=== PATIENT | female | born 1980 | race Caucasian/White ===

== ENCOUNTER 2016-05-22 23:07 | Emergency (ER) | payer SELFPAY ==
[~2016-05-22] VITALS: Ht 162.6 cm; Wt 84.4 kg
[2016-05-22 23:11] VITALS: BP 136/90
--- NOTE | 2016-05-22 23:19 | NUR ---
PT TAKEN TO BED 3
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
--- NOTE | 2016-05-22 23:38 | NUR ---
Dr. Leyva evaluating patient at bedside.
[2016-05-22] MEDS ORDERED: MORPHINE SULFATE 10 MG/ML SYR IM ONE (23:45)
[2016-05-23] MEDS ORDERED: ONDANSETRON 4 MG TAB PO ONE (00:15)
[2016-05-23 00:47] VITALS: BP 136/94
--- NOTE | 2016-05-23 00:47 | NUR ---
Patient discharged BY DR ANGELES with v/s stable. Written and verbal after care instructions given and explained BY ER MD. Patient alert, oriented and verbalized understanding of instructions. Wheel Chair Assisted with by caregiver. All questions addressed prior to discharge. ID band removed. Patient advised to follow up with PMD OR RETURN TO ER IF CONDITION WORSENS. Rx of NAPROSYN Given. Patient educated on indication of medication including possible reaction and side effects. Opportunity to ask questions provided and answered.
== END 2016-05-23 00:47 | disposition home or self-care (01) ==
LOC: MED 23:07
DX: S83.91XA Sprain of unspecified site of right knee, initial encounter (principal); R10.9 Unspecified abdominal pain; R07.89 Other chest pain; Z88.5 Allergy status to narcotic agent; Z88.6 Allergy status to analgesic agent; X50.1XXA Overexertion from prolonged static or awkward postures, initial encounter; Y93.89 Activity, other specified; Y92.89 Other specified places as the place of occurrence of the external cause; Y99.8 Other external cause status; Z88.0 Allergy status to penicillin
CPT/HCPCS: 73562; 96372; 99284; J2270; Q0162

== ENCOUNTER 2017-05-04 21:30 | Emergency (ER) | payer OTHER ==
[~2017-05-04] VITALS: Ht 162.6 cm; Wt 95.3 kg
[2017-05-04 21:41] VITALS: BP 151/95
[2017-05-04] MEDS ORDERED: CIPR250T3 PO (21:45)
[2017-05-04] MEDS ORDERED: ROC2I IJ (21:45)
[2017-05-04] MEDS ORDERED: TOR30I (21:45)
--- NOTE | 2017-05-04 21:53 | NUR ---
36Y F BIB FAMILY C/O RIGHT FLANK PAIN X 2 DAYS; PT STATE SHE WENT TO URGENT CARE THIS MORNING AND WAS GIVEN A TORADOL SHOT TO RELIEF BUT PAIN STILL PRESENT. PT DENIES ANY V/D BUT C/O NAUSEA. PT AAOX4. PT STATES PAIN IS SHARP NON RADIATING. 9/10 PAIN
--- NOTE | 2017-05-04 22:02 | NUR ---
Patient being evaluated by physician at bedside.
[2017-05-04] MEDS ORDERED: KETOROLAC 30 MG/ML VIAL IM ONE (22:05)
[2017-05-04] MEDS ORDERED: ONDANSETRON 4 MG ODT PO ONE (22:10)
--- NOTE | 2017-05-04 22:26 | NUR ---
MOVED TO 10
--- NOTE | 2017-05-04 22:28 | NUR ---
PT LEFT FOR CT VIA WHEELCHAIR, ACCOMPANIED BY ENVIRONMENTAL ECONOMIST
--- NOTE | 2017-05-04 22:57 | NUR ---
PHLEB AT BEDSIDE, DRAWING BLOOD
[2017-05-04 23:14] LABS: APPEARANCE,URINE CLOUDY (CLEAR); BILIRUBIN,URINE NEGATIVE (NEGATIVE); BLOOD, URINE 2+ (NEGATIVE); COLOR,URINE YELLOW (YELLOW); LEUKOCYTE ESTERASE ,URINE 1+ (NEGATIVE); NITRITE, URINE POSITIVE (NEGATIVE); PH,URINE 5.5 (5.0-9.0); UGLUCOSE NEGATIVE (NEGATIVE)
[2017-05-04 23:14] LABS: ANION GAP 14.2 (8-16); CARBON DIOXIDE 26.7 mmol/L (21-32); CREATININE 0.9 mg/dL (0.6-1.3); POTASSIUM 3.9 mmol/L (3.5-5.1)
[2017-05-04 23:20] LABS: ALBUMIN 3.5 g/dL (3.4-5.0); TOTAL BILIRUBIN 0.2 mg/dL (0.0-1.0)
[2017-05-04] MEDS ORDERED: NACL 0.9% 1,000 ML IV ONE (23:20)
[2017-05-04 23:25] LABS: BASOPHILS # (AUTO) 0.5 K/uL (0.00-0.22); BASOPHILS % (AUTO) 4.4 % (0.0-2.0); EOSINOPHILS # (AUTO) 0.4 K/uL (0-0.4); EOSINOPHILS % (AUTO) 3.7 % (0.0-4.0); HEMATOCRIT 43.2 % (36-48); HEMOGLOBIN 13.9 g/dL (12.0-16.0); LYMPHOCYTES # (AUTO) 2.8 K/uL (2.5-16.5); LYMPHOCYTES % (AUTO) 24.7 % (20.5-51.1); MEAN CORPUSCULAR HEMOGLOBIN 28 pg (27-31); MEAN CORPUSCULAR HGB CONC 32 g/dL (33-37); MEAN CORPUSCULAR VOLUME 88 fL (80-94); MONOCYTES # (AUTO) 0.8 K/uL (0.8-1.0); MONOCYTES % (AUTO) 6.9 % (1.7-9.3); NEUTROPHILS # (AUTO) 6.7 K/uL (1.8-7.7); NEUTROPHILS % (AUTO) 60.3 % (42.2-75.2); PLATELET COUNT (AUTO) 231 K/uL (140-450); RED BLOOD CELL COUNT(AUTO) 4.89 MIL/uL (4.20-5.40); RED CELL DISTRIBUTION WIDTH 12.5 % (11.6-13.7); WHITE BLOOD COUNT (AUTO) 11.2 K/uL (4.8-10.8)
[2017-05-04 23:32] LABS: RBC,URINE TOO NUMEROUS TO COUN /HPF (0-5); WBC,URINE TOO MANY TO COUNT /HPF (0-5)
[2017-05-05 00:15] VITALS: BP 147/80
--- NOTE | 2017-05-05 00:15 | NUR ---
Patient discharged with v/s stable. Written and verbal after care instructions given and explained. Patient alert, oriented and verbalized understanding of instructions. Ambulatory with steady gait. All questions addressed prior to discharge. ID band removed. Patient advised to follow up with PMD. Rx of IBUPROFEN 800MG given. Patient educated on indication of medication including possible reaction and side effects. Opportunity to ask questions provided and answered.
--- NOTE | 2017-05-07 13:13 | NUR ---
1313: LEFT MESSAGE FOR PT TO CALL BACK IN REGARDS TO URINE CULTURE RESULTS AT NUMBER PROVIDED. 1310: SPOKE WITH ER MD DR. THOMPSON; PER ER MD DR. THOMPSON, PT NEEDS PRESCRIPTION FOR BACTRIM DS BID X 10 DAYS PO TX FOR URINE CULTURE RESULTS.
== END 2017-05-05 00:15 | disposition home or self-care (01) ==
LOC: MED 21:30
DX: N12 Tubulo-interstitial nephritis, not specified as acute or chronic (principal); Z79.899 Other long term (current) drug therapy; Z88.0 Allergy status to penicillin; Z88.8 Allergy status to other drugs, medicaments and biological substances
CPT/HCPCS: 36415; 74176; 80053; 81001; 81025; 83605; 83690; 85025; 87086; 87186; 96360; 96372; 99285; J1885; J7030; S0119